=== PATIENT | female | born 1945 | race African-American/Black ===

== ENCOUNTER → 2016-11-26 | Outpatient (CLI) | payer MEDICARE, OTHER ==
[2016-11-26 16:37] LABS: ANION GAP 11 (5-19); BLOOD UREA NITROGEN 18 mg/dL (7-20); CALCIUM 9.8 mg/dL (8.4-10.2); CARBON DIOXIDE 31 mmol/L (22-30); CHLORIDE 102 mmol/L (98-107); CREATININE RESULT 0.93 mg/dL (0.52-1.25); GLUCOSE 155 mg/dL (75-110); POTASSIUM 4.7 mmol/L (3.6-5.0); SODIUM 143.6 mmol/L (137-145)
== END ==
LOC: OD 15:26
PROVIDERS: ATTEND Internal Medicine Geriatric Medicine
DX: E87.6 Hypokalemia (principal)
CPT/HCPCS: 36415; 80048; 83735

== ENCOUNTER → 2017-12-23 | Outpatient (CLI) | payer MEDICARE ==
--- NOTE | 2017-12-23 13:55 | RADIOLOGY REPORT (SQ) ---
EXAM DESCRIPTION: CT ABD/PELVIS WITH IV ORAL COMPLETED DATE/TIME: 12/23/2017 1:34 pm REASON FOR STUDY: LLQ PAIN (R10.32), RLQ PAIN (R10.31) R10.32 LEFT LOWER QUADRANT PAIN COMPARISON: 02/12/2016 TECHNIQUE: CT scan of the abdomen and pelvis performed using helical scanning technique with dynamic intravenous contrast injection. No oral contrast. Images reviewed with lung, soft tissue, and bone windows. Reconstructed coronal and sagittal MPR images reviewed. Delayed images for evaluation of the urinary system also acquired. All images stored on PACS. All CT scanners at this facility use dose modulation, iterative reconstruction, and/or weight based d osing when appropriate to reduce radiation dose to as low as reasonably achievable (ALARA). [facility]: Dose Right [facility]: CareDose [facility]: Dose Right [facility]: Teradose 4D [facility]: Pay[employer]ate [place] CONTRAST TYPE AND DOSE: contrast/concentration: Isovue 370.00 mg/ml; Total Contrast Delivered: 98.0 ml; Total Saline Delivered: 72.0 ml RENAL FUNCTION: Not recorded. RADIATION DOSE: CT Rad equipment meets quality standard of care and radiation dose reduction techniq ues were employed. CTDIvol: 25.6 - 28.3 mGy. DLP: 2565 mGy-cm.. LIMITATIONS: None. FINDINGS: LOWER CHEST: No significant findings. No nodules or infiltrates. LIVER: Normal size. No masses. No dilated ducts. SPLEEN: Normal size. No focal lesions. PANCREAS: Mild dilatation of the proximal pancreatic duct which is stable. GALLBLADDER: Surgically absent. ADRENAL GLANDS: Thickening of left adrenal, stable. RIGHT KIDNEY AND URETER: No solid masses. No significant calcifications. No hydronephrosis or hyd roureter. LEFT KIDNEY AND URETER: No solid masses. No significant calcifications. No hydronephrosis or hydr oureter. AORTA AND VESSELS: No aneurysm. RETROPERITONEUM: No retroperitoneal adenopathy, hemorrhage or masses. BOWEL AND PERITONEAL CAVITY: No masses or inflammatory changes. No free fluid or peritoneal masses. APPENDIX: Normal. PELVIS: No mass. No free fluid. Normal bladder. ABDOMINAL WALL: Prior anterior abdominal wall hernia repair. There are small defects in the fascia. No large defect or bowel incarceration. BONES: No acute findings. OTHER: No other significant finding. IMPRESSION: No acute findings in the abdomen or pelvis. No significant change. TECHNICAL DOCUMENTATION: JOB ID: [id number] Quality ID # [id number]: Final reports with documentation of one or more dose reduction techniques (e.g., Au tomated exposure control, adjustment of the mA and/or kV according to patient size, use of iterative reconstruction technique) 2010 [employer]- All Rights Reserved
== END ==
LOC: RAD 12:12
PROVIDERS: ATTEND Surgery
DX: R10.32 Left lower quadrant pain (principal); R10.31 Right lower quadrant pain
CPT/HCPCS: 74177; 82565

== ENCOUNTER 2018-06-19 15:30 | Emergency (ER) | payer MEDICARE, MEDICAID ==
--- NOTE | 2018-06-19 16:13 | ER Document Report ---
ED General - General Mode of Arrival: Ambulatory Information source: Patient TRAVEL OUTSIDE OF THE [place] IN LAST 30 DAYS: No - General Chief Complaint: Skin Problem Stated Complaint: POSSIBLE RASH Time Seen by Provider: 06/19/18 15:52 Notes: 72 y.o female presents to the ED with pain, edema and itching to her RT sided neck and RT shoulder of onset and LT wrist itching and edema of onset early this morning. Pt reports that she was very itchy and noticed that her RT shoulder was swollen to the point that it looked higher than her LT shoulder and she had initially thought that she was bitten by a spider but could not find any bite lovely nor did she feel herself being bit. Pt states that her edema to her RT sided neck is somewhat resolved but not completely. She states that on Wednesday she tried to see her PCP, Dr. Stack, and another doctors office but both were closed. Pt initally stated that her LT wrist was swollen and that she could not see any breaks to the skin indicating a bite and was unsure why she was itching and swelling. She then reported that she had a few small raised areas that itched but have since been covered by the edema and now is without any signs of cause for her itch. Pt deneis any known allergies or any recent change in foods, detergents or soaps. She does admit using an old body wash that she had not used in a very long time. She denies any known fevers but does reports that she has been diaphoretic and hot. She denies any chills, nausea or vomiting. (KISHA ALEXANDER) - Related Data Allergies/Adverse Reactions: No Known Allergies Allergy (Verified 07/20/16 13:58) Past Medical History - General Information source: Patient - Social History Smoking Status: Never Smoker Chew tobacco use (# tins/day): No Frequency of alcohol use: None Drug Abuse: None Family History: Reviewed & Not Pertinent - Past Medical History Cardiac Medical History: Reports: Hx Heart Attack - no documentation, "maybe silent heart attack" ?, Hx Hypercholesterolemia, Hx Hypertension Pulmonary Medical History: Reports: Hx Bronchitis, Hx Pneumonia GI Medical History: Reports: Hx Gastroesophageal Reflux Disease Psychiatric Medical History: Reports: Hx Anxiety, Hx Depression Past Surgical History: Reports: Hx Bowel Surgery - COLON RESECTION, Hx Cholecystectomy, Hx Hysterectomy, Hx Mastectomy - left lumpectomy no restrictions - Immunizations Hx Diphtheria, Pertussis, Tetanus Vaccination: Yes Review of Systems - Review of Systems Constitutional: See HPI, Diaphoresis. denies: Chills, Fever Gastrointestinal: See HPI. denies: Nausea, Vomiting Skin: See HPI, Other - edema, itching Physical Exam - Vital signs Vitals: Temp Pulse Resp BP Pulse Ox 98.9 F 82 16 148/55 H 96 06/19/18 15:42 06/19/18 15:42 06/19/18 15:42 06/19/18 15:42 06/19/18 15:42 - Notes Notes: Physical Exam: General: Alert, appears well. HEENT: Normocephalic. Atraumatic. PERRL. Extraocular movements intact. Oropharynx clear. Neck: Supple. Non-tender. Small papule directly to the border of hairline on RT posterior cervical area, with excoriations. Respiratory: No respiratory distress. Clear and equal breath sounds bilaterally. Cardiovascular: Regular rate and rhythm. Abdominal: Normal Inspection. Non-tender. No distension. Normal Bowel Sounds. Back: Non-tender. No deformity or step off. Extremities: Moves all four extremities, normal ROM. Excoriations to her RT trapezius. Normal range of motion to LT wrist, mild erythema. LT wrist not tender to palpate. Upper extremities grossly symmetrical. Bilateral lower extremities with vitiligo. Pitting edema to bilateral lower extremities. Neurological: Normal cognition. AAOx3. Normal speech. Psychological: Normal affect. Normal Mood. Skin: Warm. See neck, and extremities above. (KISHA ALEXANDER) Course - Re-evaluation Re-evalutation: 06/19/18 16:39 Patient has several small excoriations on the right side of her upper trapezius back area as well as one small papule the border of her hairline on the right back as well. She states that she also experienced some swelling and erythema of her left forearm which has improved without intervention. On exam it appears she may indeed have had something bite her trapezius area and possibly her neck/ hairline area on her right back. However, there is no signs of infection at this time. She has a benign exam in regards to any pain with palpation only mild erythematous distal left forearm no evidence of cellulitis, appears allergic in nature. I will provide hydrocortisone cream for the rash she has. I instructed her to use cream as directed and to clean all of her linens when she returns home. Instructed her to stop using any new detergents or shampoos as it appears she has recently changed type of body shampoo she normally uses. She is to follow- up for reevaluation in the next 2 or 3 days if symptoms are worsening or sooner if she develops any fevers. (JUAN MIGUEL JIMENES) - Vital Signs Vital signs: Temp Pulse Resp BP Pulse Ox 98.7 F 78 16 142/62 H 98 06/19/18 17:05 06/19/18 17:05 06/19/18 17:05 06/19/18 17:05 06/19/18 17:05 Discharge - Discharge Clinical Impression: Rash, Multiple excoriations Disposition: HOME, SELF-CARE Prescriptions: Triamcinolone Acetonide 15 gm TP ASDIR PRN #1 tube PRN Reason: Referrals: LAYTON PEREZ PA-C [Primary Care Provider] - Follow up as needed (Please evaluated in 2-3 days if symptoms are not improving) Scribe Attestation: 06/24/18 14:41 I personally performed the services described in the documentation, reviewed and edited the documentation which was dictated to the scribe in my presence, and it accurately records my words and actions. (JUAN MIGUEL JIMENES) Scribe Documentation - Scribe Written by Faby:: Faby Bal 06/19/18 2143 acting as scribe for :: Jaxon
[2018-06-19 17:14] VITALS: BP 142/62
== END 2018-06-19 17:05 | disposition home or self-care (01) ==
LOC: ER 15:30
DX: R21 Rash and other nonspecific skin eruption (principal); R60.0 Localized edema; I25.2 Old myocardial infarction; I10 Essential (primary) hypertension
CPT/HCPCS: 99283

== ENCOUNTER → 2018-09-13 | Outpatient (CLI) | payer MEDICARE ==
--- NOTE | 2018-09-13 16:25 | WOMENS IMAGING REPORT ---
EXAM DESCRIPTION: 3D SCREENING MAMMO BILAT COMPLETED DATE/TIME: 09/13/2018 2:55 pm REASON FOR STUDY: BILATERAL SCREENING MAMMO 3D/Z12.31 Z12.31 ENCNTR SCREEN MAMMOGRAM FOR MALIGNANT NEOPLASM OF JUAN COMPARISON: [id number] TECHNIQUE: Standard craniocaudal and mediolateral oblique views of each breast recorded using digita l acquisition and breast tomosynthesis. LIMITATIONS: None. FINDINGS: RIGHT BREAST MASSES: No suspicious masses. CALCIFICATIONS: Clustered calcifications upper outer quadrant 12 o'clock 5.5 cm deep to the nipple. ARCHITECTURAL DISTORTION: None. DEVELOPING DENSITY: None. ASYMMETRY: None noted. OTHER: No other significant findings. LEFT BREAST MASSES: No suspicious masses. CALCIFICATIONS: No new or suspicious calcifications. ARCHITECTURAL DISTORTION: None. DEVELOPING DENSITY: None. ASYMMETRY: None noted. OTHER: No other significant findings. Read with the assistance of CAD. .[facility] - R2 Cenova Version 1.3 .[facility] - R2 Cenova Version 1.3 .[facility] Imaging - R2 Cenova Version 2.4 .[facility] [place] - R2 Cenova Version 2.4 .[facility] - R2 Machine Cloth Examiner Version 9.2 IMPRESSION: Calcifications right breast. BREAST DENSITY: b. There are scattered areas of fibroglandular density. BIRAD: 0 Incomplete: Needs Additional Imaging Evaluation and/or prior Mammograms for Comparison. RECOMMENDATION: RECOMMENDED FOLLOW-UP: True lateral and magnification views right breast. The patient will be contacted for additional imaging. COMMENT: The patient has been notified of the results by letter per SA requirements. Additional no tification policies are in place for contacting patient with suspicious or incomplete findings. Quality ID #225: The [employer] recommends an annual screening mammogram for women aged 40 years or over. This facility utilizes a reminder system to ensure that all patients receive reminder letters, and/or direct phone calls for appointments. This includes reminders for routine scr eening mammograms, diagnostic mammograms, or other Breast Imaging Interventions when appropriate. Th is patient will be placed in the appropriate reminder system. The [employer] (ACR) has developed recommendations for screening MRI of the breast s in certain patient populations, to be used in conjunction with mammography. Breast MRI surveillanc e may be appropriate for women with more than 20% lifetime risk of developing breast cancer as deter mined by genetic testing, significant family history of the disease, or history of mantle radiation f or Hodgkins Disease. ACR Practice Guidelines 2008. DBT Technology DBT is a type of tomographic mammography. With conventional mammography, overlapping breast tissue ma y make lesions difficult to detect, even with good compression. DBT uses an x-ray tube that rotates a round the breast, taking images at different angles. These images are then combined to create thin sl ices of the breast that the radiologist can view as a 3D reconstruction. The [employer] unit can perform full-field digital mammograms (2D imaging); or DBT (3D imaging); or both, in a combination mode that quickly performs both the mammogram and the tomosynthesis scan while the breast is still compressed. PQRS 6045F: Fluoroscopic imaging is not utilized for breast tomosynthesis. TECHNICAL DOCUMENTATION: FINDING NUMBER: (1) ASSESSMENT: (1) JOB ID: [id number] [employer]- All Rights Reserved Reading location - IP/workstation name: [email or web address]
== END ==
LOC: WI 13:57
PROVIDERS: ATTEND Internal Medicine Geriatric Medicine
DX: Z12.31 Encounter for screening mammogram for malignant neoplasm of breast (principal); R92.0 Mammographic microcalcification found on diagnostic imaging of breast
CPT/HCPCS: 77063; 77067

== ENCOUNTER → 2018-09-27 | Outpatient (CLI) | payer MEDICAID, MEDICARE ==
--- NOTE | 2018-09-27 14:30 | WOMENS IMAGING REPORT ---
EXAM DESCRIPTION: RIGHT DIAGNOSTIC MAMMO W/CAD COMPLETED DATE/TIME: 09/27/2018 12:09 pm REASON FOR STUDY: CALCIFICATIONS R92.1 MAMMOGRAPHIC CALCIFCN FOUND ON DIAGNOSTIC IMAGING OF B COMPARISON: Multiple since 2012 TECHNIQUE: Standard craniocaudal and mediolateral oblique images of the breast recorded with digital acquisition. Right breast magnification craniocaudad and 90 mediolateral views were also obtained. LIMITATIONS: None. FINDINGS: BREAST: Right MASSES: No suspicious masses. CALCIFICATIONS: Multiple groups of calcifications are present in the right breast, unchanged from 201 3. Lack of significant growth or loom changer a 5 year interval indicates benign etiology. ARCHITECTURAL DISTORTION: None. DEVELOPING DENSITY: None. ASYMMETRY: None noted. OTHER: No other significant findings. Read with the assistance of CAD. .[facility] - R2 Cenova Version 1.3 .[facility] Imaging - R2 Cenova Version 1.3 .[facility] Imaging - R2 Cenova Version 2.4 .[facility] [place] - R2 Cenova Version 2.4 .[facility] - R2 End[employer] Belt Finisher Version 9.2 IMPRESSION: No mammographic evidence for malignancy right breast. BREAST DENSITY: b. There are scattered areas of fibroglandular density. BIRAD: 2 Benign findings. RECOMMENDATION: RECOMMENDED FOLLOW UP: Please continue yearly bilateral screening mammography/tomosy nthesis in September 2019 SPECIFIC INTERVENTION/IMAGING/CONSULTATION RECOMMENDED:No additional intervention/ imaging/consultati on needed at this time. COMMUNICATION:Patient notified by letter COMMENT: The patient has been notified of the results by letter per SA requirements. Additional no tification policies are in place for contacting patient with suspicious or incomplete findings. Quality ID #[id number]: The [employer] recommends an annual screening mammogram for women aged 40 years or over. This facility utilizes a reminder system to ensure that all patients receive reminder letters, and/or direct phone calls for appointments. This includes reminders for routine scr eening mammograms, diagnostic mammograms, or other Breast Imaging Interventions when appropriate. Th is patient will be placed in the appropriate reminder system. The [employer] (ACR) has developed recommendations for screening MRI of the breast s in certain patient populations, to be used in conjunction with mammography. Breast MRI surveillanc e may be appropriate for women with more than 20% lifetime risk of developing breast cancer as deter mined by genetic testing, significant family history of the disease, or history of mantle radiation f or Hodgkins Disease. ACR Practice Guidelines 2008. TECHNICAL DOCUMENTATION: FINDING NUMBER: (1) ASSESSMENT: (1) JOB ID: [id number] [employer]- All Rights Reserved Reading location - IP/workstation name: [email or web address]
== END ==
LOC: WI 11:13
PROVIDERS: ATTEND Internal Medicine Geriatric Medicine
DX: R92.0 Mammographic microcalcification found on diagnostic imaging of breast (principal)

== ENCOUNTER 2019-02-13 09:38 | Emergency (ER) | payer MEDICARE ==
--- NOTE | 2019-02-13 10:01 | ER Document Report ---
ED Medical Screen (RME) - General Chief Complaint: Shortness Of Breath Stated Complaint: SHORTNESS OF BREATH Time Seen by Provider: 02/13/19 09:52 Primary Care Provider: COMPA CARRILLO MD [Primary Care Provider] - Follow up as needed Mode of Arrival: Ambulatory Information source: Patient Notes: Patient is a 73-year-old female who presents to the emergency department with complaints of shortness of breath, bilateral lower extremity swelling and a 5 pound weight gain over the weekend. Patient reports history of CHF. Patient states shortness of breath is worse when she tries to lay down or when she is ambulating. Patient also complaining of possible yeast infection. Patient reporting that she usually takes Diflucan when this occurs. Of note patient is scheduled for a cardiac catheterization tomorrow in [place] and is concerned about not only the potential for a CHF exacerbation but also the yeast infection as the plan is to do a femoral cath. Exam: No obvious shortness of breath noted. Lung sounds are clear to auscultation bilaterally. I have greeted and performed a rapid initial assessment of this patient. A comprehensive ED assessment and evaluation of the patient, analysis of test results and completion of the medical decision making process will be conducted by additional ED providers. Dictation of this chart was performed using voice recognition software; therefore, there may be some unintended grammatical errors. TRAVEL OUTSIDE OF THE [place] IN LAST 30 DAYS: No - Related Data Allergies/Adverse Reactions: No Known Allergies Allergy (Verified 02/13/19 09:44) Past Medical History - Past Medical History Cardiac Medical History: Reports: Hx Heart Attack - no documentation, "maybe silent heart attack" ?, Hx Hypercholesterolemia, Hx Hypertension Pulmonary Medical History: Reports: Hx Bronchitis, Hx Pneumonia Denies: Hx Asthma Neurological Medical History: Denies: Hx Cerebrovascular Accident, Hx Seizures Renal/ Medical History: Denies: Hx Peritoneal Dialysis GI Medical History: Reports: Hx Gastroesophageal Reflux Disease. Denies: Hx Hepatitis, Hx Hiatal Hernia, Hx Ulcer Psychiatric Medical History: Reports: Hx Anxiety, Hx Depression Infectious Medical History: Denies: Hx Hepatitis Past Surgical History: Reports: Hx Bowel Surgery - COLON RESECTION, Hx Cholecystectomy, Hx Hysterectomy, Hx Mastectomy - left lumpectomy no restrictions. Denies: Hx Open Heart Surgery, Hx Pacemaker - Immunizations Hx Diphtheria, Pertussis, Tetanus Vaccination: Yes Physical Exam - Vital signs Vitals: Temp Pulse Resp BP Pulse Ox 98.5 F 73 20 173/65 H 96 02/13/19 09:56 02/13/19 09:56 02/13/19 09:56 02/13/19 09:56 02/13/19 09:56 Course - Vital Signs Vital signs: Temp Pulse Resp BP Pulse Ox 98.5 F 73 20 173/65 H 96 02/13/19 09:56 02/13/19 09:56 02/13/19 09:56 02/13/19 09:56 02/13/19 09:56 Doctor's Discharge - Discharge Referrals: COMPA CARRILLO MD [Primary Care Provider] - Follow up as needed
[2019-02-13] MEDS ORDERED: FUROSEMIDE INJ/PF 100 MG/10 ML SDV IV ONE (10:32)
[2019-02-13 11:05] LABS: ABSOLUTE BASOPHILS # (AUTO) 0.1 10^3/uL (0.0-0.2); ABSOLUTE EOSINOPHILS # (AUTO) 0.3 10^3/uL (0.0-0.6); ABSOLUTE LYMPHOCYTES (AUTO) 2.2 10^3/uL (0.5-4.7); ABSOLUTE MONOCYTES (AUTO) 0.9 10^3/uL (0.1-1.4); ABSOLUTE NEUT (AUTO) 6.2 10^3/uL (1.7-8.2); BASOPHILS % (AUTO) 0.9 % (0-2); EOSINOPHILS % (AUTO) 2.7 % (0-6); HEMATOCRIT 40.4 % (36.0-47.0); LYMPHOCYTES % (AUTO) 22.6 % (13-45); MEAN CORPUSCULAR HEMOGLOBIN 22.5 pg (27.0-33.4); MEAN CORPUSCULAR HGB CONC 32.2 g/dL (32.0-36.0); MEAN CORPUSCULAR VOLUME 70 fl (80-97); MONOCYTES % (AUTO) 8.9 % (3-13); PLATELET COUNT 230 10^3/uL (150-450); RED BLOOD COUNT 5.77 10^6/uL (3.72-5.28); RED CELL DISTRIBUTION WIDTH 15.9 % (11.5-14.0); SEGMENTED NEUTROPHILS % (AUTO) 64.9 % (42-78); TOTAL CELLS COUNTED % (AUTO) 100 %; WHITE BLOOD COUNT 9.6 10^3/uL (4.0-10.5)
[2019-02-13 11:19] LABS: ALANINE AMINOTRANSFERASE 23 U/L (9-52); ALBUMIN 3.8 g/dL (3.5-5.0); ALKALINE PHOSPHATASE 143 U/L (38-126); ANION GAP 6 (5-19); ASPARTATE AMINO TRANSFERASE 21 U/L (14-36); BILIRUBIN,DIRECT 0.2 mg/dL (0.0-0.4); BILIRUBIN,TOTAL 0.6 mg/dL (0.2-1.3); BLOOD UREA NITROGEN 21 mg/dL (7-20); CALCIUM 9.9 mg/dL (8.4-10.2); CARBON DIOXIDE 27 mmol/L (22-30); CHLORIDE 107 mmol/L (98-107); GLUCOSE 167 mg/dL (75-110); SODIUM 140.4 mmol/L (137-145); TOTAL PROTEIN 7.3 g/dL (6.3-8.2)
--- NOTE | 2019-02-13 11:24 | RADIOLOGY REPORT (SQ) ---
EXAM DESCRIPTION: CHEST SINGLE VIEW COMPLETED DATE/TIME: 02/13/2019 10:25 am REASON FOR STUDY: shortness of breath, hx of CHF COMPARISON: 07/20/2016 EXAM PARAMETERS: NUMBER OF VIEWS: One view. TECHNIQUE: Single frontal radiographic view of the chest acquired. RADIATION DOSE: NA LIMITATIONS: None. FINDINGS: LUNGS AND PLEURA: Minimal scarring or atelectasis in the left mid-lower lung zone. No ac franchesca pulmonary consolidation. No pneumothorax or pleural effusion. MEDIASTINUM AND HILAR STRUCTURES: No masses. Contour normal. HEART AND VASCULAR STRUCTURES:Cardiomegaly. Normal vasculature. BONES: No acute findings. HARDWARE: None in the chest. OTHER: No other significant finding. IMPRESSION: 1. Stable examinations since the prior study dated 07/20/2016. Minimal atelectasis or s car left mid-lower lung zones. 2. Cardiomegaly, no evidence for failure. TECHNICAL DOCUMENTATION: JOB ID: [id number] [employer]- All Rights Reserved Reading location - IP/workstation name: [email or web address]
[2019-02-13 11:45] LABS: CREATINE KINASE 64 U/L (30-135)
[2019-02-13] MEDS ORDERED: FLUCONAZOLE 100 MG TABLET PO ONE (11:55)
[2019-02-13 12:20] LABS: APPEARANCE,URINE CLEAR; BILIRUBIN,URINE NEGATIVE (NEGATIVE); COLOR,URINE YELLOW; GLUCOSE, URINE NEGATIVE (NEGATIVE); KETONES,URINE NEGATIVE (NEGATIVE); LEUKOCYTE ESTERASE,URINE NEGATIVE (NEGATIVE); NITRITE,URINE NEGATIVE (NEGATIVE); PROTEIN,URINE NEGATIVE (NEGATIVE); UROBILINOGEN,URINE NEGATIVE mg/dL (<2.0)
--- NOTE | 2019-02-13 13:27 | ER Document Report ---
Entered by ADONAY MONTIEL SCRIBE 02/13/19 1038 Acting as scribe for:FAUZIA VIZCARRA MD ED General - General Chief Complaint: Shortness Of Breath Stated Complaint: SHORTNESS OF BREATH Time Seen by Provider: 02/13/19 09:52 Primary Care Provider: COMPA CARRILLO MD [Primary Care Provider] - Follow up as needed Mode of Arrival: Ambulatory Information source: Patient Notes: Patient is a 73 year old female with CHF presents to the emergency department complaining of shortness of breath, BLE selling and a possible yeast infection. Patient states she is short of breath on exertion and when supine. She states she noticed her BLE swelling and and a 5lbs weight gain over the weekend. She states she did eat 2 slices of pepperoni pizza, sausage and pierce over the weekend and further states she has not been urinating as much. She reports not taking her Lasix this morning due to not being near a bathroom. She also complained of some chest pressure, so she used 1 squirt of her nitroglycerin under the tongue and it seemed to help. She additionally has a nitroglycerin patch on. Patient also complains of a possible yeast infection. She states she would like to have this checked because she is scheduled to a femoral cardiac cath placed tomorrow in [place], [place]. Patient's PCP is Dr. Carrillo. Her manager registration is Dr. Hernandez. TRAVEL OUTSIDE OF THE [place] IN LAST 30 DAYS: No - Related Data Allergies/Adverse Reactions: No Known Allergies Allergy (Verified 02/13/19 09:44) Past Medical History - General Information source: Patient - Social History Smoking Status: Never Smoker Chew tobacco use (# tins/day): No Frequency of alcohol use: None Drug Abuse: None Family History: Reviewed & Not Pertinent Patient has suicidal ideation: No Patient has homicidal ideation: No - Past Medical History Cardiac Medical History: Reports: Hx Heart Attack - no documentation, "maybe silent heart attack" ?, Hx Hypercholesterolemia, Hx Hypertension Pulmonary Medical History: Reports: Hx Bronchitis, Hx Pneumonia GI Medical History: Reports: Hx Gastroesophageal Reflux Disease Psychiatric Medical History: Reports: Hx Anxiety, Hx Depression Past Surgical History: Reports: Hx Bowel Surgery - COLON RESECTION, Hx Cholecystectomy, Hx Hysterectomy, Hx Mastectomy - left lumpectomy no r estrictions - Immunizations Hx Diphtheria, Pertussis, Tetanus Vaccination: Yes Review of Systems - Review of Systems Constitutional: No symptoms reported EENT: No symptoms reported Cardiovascular: No symptoms reported Respiratory: See HPI, Short of breath Gastrointestinal: No symptoms reported Genitourinary: No symptoms reported Female Genitourinary: See HPI Musculoskeletal: See HPI Skin: No symptoms reported Hematologic/Lymphatic: No symptoms reported Neurological/Psychological: No symptoms reported -: Yes All other systems reviewed and negative Physical Exam - Vital signs Vitals: Temp Pulse Resp BP Pulse Ox 98.5 F 73 20 173/65 H 96 02/13/19 09:56 02/13/19 09:56 02/13/19 09:56 02/13/19 09:56 02/13/19 09:56 - Notes Notes: GENERAL: Alert, interacts well. No acute distress. HEAD: Normocephalic, atraumatic. EYES: Pupils equal, round, and reactive to light. Extraocular movements intact. ENT: Oral mucosa moist, tongue midline. NECK: Full range of motion. Supple. Trachea midline. LUNGS: Clear to auscultation bilaterally, no wheezes, rales, or rhonchi. No respiratory distress. HEART: Regular rate and rhythm. No murmurs, gallops, or rubs. ABDOMEN: Soft, obese, non-tender. Non-distended. Bowel sounds present in all 4 quadrants. No guarding, rigidity, or rebound. PERINEUM: There is no intertriginous rash seen in the groin and labia region. EXTREMITIES: Moves all 4 extremities spontaneously. 2+ pittinge edema to the BLE. NEUROLOGICAL: Alert and oriented x3. Normal speech. PSYCH: Normal affect, normal mood. SKIN: Warm, dry, normal turgor. No rashes or lesions noted. Course - Re-evaluation Re-evalutation: 02/13/19 12:15 The patient is urinating quite a lot after the IV Lasix. She is too obese to get up and down to the bedside commode, so a suction catheter was placed between the labia to try to catch the fluid. It does not seem to be too successful as she actually seems to have a high flow of urine coming out onto the stretcher at this time. 02/13/19 12:55 The patient has diuresed large volumes of urine. Quantitation is not possible to to it all going out into the bed and the sheets. She does feel better. Troponin was undetectable. She is scheduled for a cardiac catheterization tomorrow. She is not complaining of any chest discomfort or shortness of breath during her emergency room stay. Her EKG did not show any ischemic changes and was essentially normal. - Vital Signs Vital signs: Temp Pulse Resp BP Pulse Ox 98.5 F 73 22 H 134/62 H 97 02/13/19 09:56 02/13/19 09:56 02/13/19 12:00 02/13/19 10:56 02/13/19 12:00 - Laboratory Result Diagrams: 02/13/19 10:43 02/13/19 10:43 Laboratory results interpreted by me: 02/13/19 02/13/19 10:43 10:43 RBC 5.77 H MCV 70 L MCH 22.5 L RDW 15.9 H BUN 21 H Est GFR (Non-Af Amer) 53 L Glucose 167 H Alkaline Phosphatase 143 H - Diagnostic Test Radiology reviewed: Image reviewed, Reports reviewed - Cardiomegaly without failure. Stable chest x-ray since previous study. - EKG Interpretation by Me EKG shows normal: Sinus rhythm, [place], Intervals, QRS Complexes, ST-T Waves Rate: Normal - 69 Rhythm: NSR Discharge - Discharge Clinical Impression: Peripheral edema, Dietary indiscretion High blood pressure Qualifiers: Hypertension type: essential hypertension Qualified Code(s): I10 - Essential (primary) hypertension Chest pain Qualifiers: Chest pain type: unspecified Qualified Code(s): R07.9 - Chest pain, unspecified Condition: Stable Disposition: HOME, SELF-CARE Additional Instructions: Edema, Peripheral You have swelling in your legs. This is called peripheral edema. It can be caused by "leaky capillaries," inflammation, disease of the leg veins, or excess salt and water in your body. Edema may be a sign of heart, kidney, or liver disease. A medical evaluation can determine if there is a serious underlying cause for your edema. Avoid prolonged standing. If you must sit for a long time, occasionally get up and walk around or elevate your legs. Support stockings can be helpful in limiting swelling. Often diuretic or water pills are used to remove excess salt and water from your body. Call the doctor or return if you develop increased swelling, pain, or redness, shortness of breath, chest pain, or any other significant change. Your increased swelling and fluid weight gain, is most likely due to the excessive amount of sodium in your diet over the weekend. You were given a dose of Diflucan for vaginal yeast in case that is becoming a problem so that it will not interfere with your cardiac catheterization tomorrow. Be sure to continue your regular medications. Avoid high sodium foods in your diet. Elevate your legs today to help get the swelling out. Follow-up with your primary care provider if not improving. RETURN TO THE EMERGENCY ROOM IF ANY NEW OR WORSENING SYMPTOMS. Referrals: COMPA CARRILLO MD [Primary Care Provider] - Follow up as needed Scribe Attestation: 02/13/19 11:00 I personally performed the services described in the documentation, reviewed and edited the documentation which was dictated to the scribe in my presence, and it accurately records my words and actions. I personally performed the services described in the documentation, reviewed and edited the documentation which was dictated to the scribe in my presence, and it accurately records my words and actions.
[2019-02-13 13:38] VITALS: BP 167/68
--- NOTE | 2019-02-13 20:48 | EKG REPORT ---
SEVERITY:- OTHERWISE NORMAL ECG - SINUS OR ECTOPIC ATRIAL RHYTHM : Confirmed by: Jaye Hernandez 13-Feb-2019 20:47:15
== END 2019-02-13 13:37 | disposition home or self-care (01) ==
LOC: ER 09:38
DX: I11.0 Hypertensive heart disease with heart failure (principal); I50.9 Heart failure, unspecified; T50.1X6A Underdosing of loop [high-ceiling] diuretics, initial encounter; Z91.128 Patient's intentional underdosing of medication regimen for other reason; Z91.11 Patient's noncompliance with dietary regimen; Z91.14 Patient's other noncompliance with medication regimen; R07.89 Other chest pain; R06.02 Shortness of breath; R60.0 Localized edema
CPT/HCPCS: 93005; 99285; 96374; 36415; 82550; 85025; 80053; 81001; 84484; 83880; 71045; 93010; J1940; A9270

== ENCOUNTER → 2019-05-30 | Outpatient (CLI) | payer MEDICARE, MEDICAID ==
[2019-05-30 09:15] LABS: ABSOLUTE BASOPHILS # (AUTO) 0.1 10^3/uL (0.0-0.2); ABSOLUTE EOSINOPHILS # (AUTO) 0.2 10^3/uL (0.0-0.6); ABSOLUTE LYMPHOCYTES (AUTO) 2.1 10^3/uL (0.5-4.7); ABSOLUTE MONOCYTES (AUTO) 0.8 10^3/uL (0.1-1.4); ABSOLUTE NEUT (AUTO) 5.5 10^3/uL (1.7-8.2); BASOPHILS % (AUTO) 0.8 % (0-2); EOSINOPHILS % (AUTO) 2.7 % (0-6); HEMATOCRIT 41.6 % (36.0-47.0); HEMOGLOBIN 13.1 g/dL (12.0-15.5); LYMPHOCYTES % (AUTO) 23.9 % (13-45); MEAN CORPUSCULAR HEMOGLOBIN 22.1 pg (27.0-33.4); MEAN CORPUSCULAR HGB CONC 31.4 g/dL (32.0-36.0); MEAN CORPUSCULAR VOLUME 70 fl (80-97); MONOCYTES % (AUTO) 9.1 % (3-13); PLATELET COUNT 256 10^3/uL (150-450); RED BLOOD COUNT 5.91 10^6/uL (3.72-5.28); RED CELL DISTRIBUTION WIDTH 16.6 % (11.5-14.0); SEGMENTED NEUTROPHILS % (AUTO) 63.5 % (42-78); TOTAL CELLS COUNTED % (AUTO) 100 %; WHITE BLOOD COUNT 8.7 10^3/uL (4.0-10.5)
[2019-05-30 09:46] LABS: ALANINE AMINOTRANSFERASE 35 U/L (9-52); ALKALINE PHOSPHATASE 137 U/L (38-126); ANION GAP 8 (5-19); ASPARTATE AMINO TRANSFERASE 28 U/L (14-36); BILIRUBIN,DIRECT 0.2 mg/dL (0.0-0.4); BILIRUBIN,TOTAL 0.6 mg/dL (0.2-1.3); BLOOD UREA NITROGEN 17 mg/dL (7-20); CALCIUM 9.6 mg/dL (8.4-10.2); CARBON DIOXIDE 31 mmol/L (22-30); CHLORIDE 105 mmol/L (98-107); CHOLESTEROL 136.44 mg/dL (0-200); GLUCOSE 121 mg/dL (75-110); TOTAL PROTEIN 7.5 g/dL (6.3-8.2); TRIGLYCERIDES 64 mg/dL (<150)
[2019-05-30 09:56] LABS: ANISOCYTOSIS 1+; HYPOCHROMASIA 3+; OVALOCYTES SLIGHT; PLATELET COMMENT ADEQUATE; POIKILOCYTOSIS SLIGHT; POLYCHROMASIA SLIGHT; TARGET CELLS SLIGHT
[2019-05-30 10:00] LABS: DIRECT LDL 67 mg/dL (<100)
== END ==
LOC: OD 07:57
PROVIDERS: ATTEND Internal Medicine Geriatric Medicine
DX: E11.65 Type 2 diabetes mellitus with hyperglycemia (principal)
CPT/HCPCS: 36415; 80053; 80061; 83036; 85025

== ENCOUNTER → 2019-09-14 | Outpatient (CLI) | payer MEDICAID, MEDICARE ==
--- NOTE | 2019-09-14 11:14 | WOMENS IMAGING REPORT ---
EXAM DESCRIPTION: 3D SCREENING MAMMO BILAT COMPLETED DATE/TIME: 09/14/2019 10:10 am REASON FOR STUDY: Z12.31 SCREENING MAMMO Z12.31 ENCNTR SCREEN MAMMOGRAM FOR MALIGNANT NEOPLASM OF B RE COMPARISON: 2016, 2017 EXAM PARAMETERS: Standard craniocaudal and mediolateral oblique views of each breast recorded using digital acquisition and breast tomosynthesis. Read with the assistance of CAD. .[facility] - [employer] Version 9.2 LIMITATIONS: None. FINDINGS: Findings present which are benign by mammographic criteria. No suspicious masses, calcific ations or architectural distortion. Pertinent benign findings: Stable calcifications. Benign mammographic findings may include one or more of the following: Smooth masses, popcorn/rim/coa rse calcifications, asymmetries, post-procedure changes, and lesions with long-standing stability. IMPRESSION: BENIGN MAMMOGRAPHIC FINDINGS. BIRADS 2 BREAST DENSITY: b. There are scattered areas of fibroglandular density. BIRAD: ASSESSMENT: 2 BENIGN FINDING(S) RECOMMENDATION: ROUTINE SCREENING COMMENT: The patient has been notified of the results by letter per [place] requirements. Additional no tification policies are in place for contacting patient with suspicious or incomplete findings. Quality ID #[id number]: The [employer] recommends an annual screening mammogram for women aged 40 years or over. This facility utilizes a reminder system to ensure that all patients receive reminder letters, and/or direct phone calls for appointments. This includes reminders for routine scr eening mammograms, diagnostic mammograms, or other Breast Imaging Interventions when appropriate. Th is patient will be placed in the appropriate reminder system. TECHNICAL DOCUMENTATION: FINDING NUMBER: (1) ASSESSMENT: (1) JOB ID: [id number] [employer]- All Rights Reserved Reading location - IP/workstation name: [facility]-
== END ==
LOC: WI 09:35
PROVIDERS: ATTEND Internal Medicine Geriatric Medicine
DX: Z12.31 Encounter for screening mammogram for malignant neoplasm of breast (principal)
CPT/HCPCS: 77063; 77067